=== PATIENT | female | born 1985 | race Caucasian/White ===

== ENCOUNTER 2020-07-13 17:26 | Emergency (ER) | payer OTHER ==
[~2020-07-13] VITALS: Ht 160 cm; Wt 70.9 kg
--- NOTE | 2020-07-13 18:05 | NUR ---
PERIUMBILICAL PAIN X5 DAYS. WAS SEEN AT TODAY AND SENT TO ED. +NAUSEA, REPORTS PAIN IS WORSE WHEN WALKING OR LIFTING. NO VOMITING, LBM TODAY
[2020-07-13] MEDS ORDERED: ONDANSETRON 2MG/ML, 2ML ONE (18:28)
[2020-07-13] MEDS ORDERED: ONDANSETRON 2MG/ML, 2ML IVPush ONE (18:30)
[2020-07-13] MEDS ORDERED: MORPHINE SULFATE 4 MG/ML, 1ML IVPush PRN (18:30)
[2020-07-13 18:34] LABS: BASOPHILS % (AUTO) 2 % (0-1); EOSINOPHILS # (AUTO) 0.15 x10^3/uL (0-0.4); EOSINOPHILS % (AUTO) 2 % (1-7); LYMPHOCYTES # (AUTO) 2.45 x10^3/uL (1-3.4); LYMPHOCYTES % (AUTO) 26 % (22-44); MD NO; MEAN CORPUSCULAR HEMOGLOBIN 31.7 pg (27.0-34.8); MEAN CORPUSCULAR HGB CONC 33.6 g/dL (32.4-35.8); MEAN CORPUSCULAR VOLUME 94.5 fL (80-100); MEAN PLATELET VOLUME 7.4 fL (7.4-10.4); MONOCYTES # (AUTO) 0.61 x10^3/uL (0.2-0.8); MONOCYTES % (AUTO) 7 % (2-9); NEUTROPHILS # (AUTO) 5.88 x10^3/uL (1.8-6.8); NEUTROPHILS % (AUTO) 63 % (42-75); PLATELET COUNT 333 x10^3/uL (130-400); RED CELL DISTRIBUTION WIDTH 12.8 % (9.6-15.2)
[2020-07-13 18:42] LABS: ALANINE AMINOTRANSFERASE 25 U/L (12-78); ALBUMIN 3.3 g/dL (3.4-5.0); ANION GAP 6 mmol/L (5-15); CALCIUM 8.6 mg/dL (8.5-10.1); CHLORIDE 107 mmol/L (98-107); CREATININE 0.74 mg/dL (0.55-1.02)
[2020-07-13 18:46] LABS: ALKALINE PHOSPHATASE 69 U/L (45-117); BILIRUBIN,TOTAL 0.3 mg/dL (0.2-1.0); TOTAL PROTEIN 6.9 g/dL (6.4-8.2)
[2020-07-13 18:48] LABS: MICROSCOPIC NOT IND
--- NOTE | 2020-07-13 18:59 | NUR ---
RECEIVED REPORT FROM TERE ATKINS. PATIENT GOING TO CT SCAN. SHE IS RESTING COMFORTABLEY. PAIN IS 3/10. NO COMPLAINTS AT THIS TIME.
--- NOTE | 2020-07-13 19:04 | NUR ---
REPORT TO ARIES/KEVIN RNS
[2020-07-13] MEDS ORDERED: OMNIPAQUE 350 MG/ML, 100ML BOTTLE ONE (19:12)
[2020-07-13 20:18] VITALS: BP 128/61
--- NOTE | 2020-07-13 20:45 | NUR ---
Patient given discharge instructions and they have confirmed that they understand the instructions. Patient ambulatory with steady gait.
== END 2020-07-13 20:54 | disposition home or self-care (01) ==
LOC: ED 19:42
DX: N83.292 Other ovarian cyst, left side (principal); R10.33 Periumbilical pain
CPT/HCPCS: 36415; 74177; 80053; 81003; 83690; 84703; 85025; 96374; 99285; J2405; Q9967

== ENCOUNTER 2021-05-04 17:53 | Inpatient (IN) | payer BC, OTHER ==
[~2021-05-04] VITALS: Ht 160 cm; Wt 85.5 kg
[2021-05-04 18:08] VITALS: BP 125/74
[2021-05-04] MEDS ORDERED: OXYTOCIN 30U/ 0.9% NaCL 500ML 500 ML ONE (19:10)
[2021-05-04] MEDS ORDERED: NEWBORN KIT ONE (19:10)
[2021-05-04] MEDS ORDERED: LIDOCAINE 1%, 20ML ONE (19:10)
[2021-05-04] MEDS ORDERED: MISOPROSTOL 200 MCG TABLET ONE (19:10)
[2021-05-04] MEDS: FENTANYL PF 100 MCG/2ML IVPush PRN ×2 (19:29→20:29)
[2021-05-04] MEDS ORDERED: LACTATED RINGERS 1,000 ML IV SCH ×2 (19:30→21:30)
[2021-05-04] MEDS ORDERED: OXYTOCIN 30U/ 0.9% NaCL 500ML 500 ML IV ONE (19:30)
[2021-05-04] MEDS ORDERED: TERBUTALINE 1 MG/ML, 1ML SQ PRN (19:30)
[2021-05-04] MEDS ORDERED: FENTANYL PF 100 MCG/2ML IV PRN (19:30)
[2021-05-04] MEDS ORDERED: TERBUTALINE 1 MG/ML, 1ML IVPush PRN (19:30)
[2021-05-04 19:34] LABS: BASOPHILS % (AUTO) 0 % (0-1); EOSINOPHILS % (AUTO) 0 % (1-7); LYMPHOCYTES % (AUTO) 18 % (22-44); MEAN CORPUSCULAR HEMOGLOBIN 32.3 pg (27.0-34.8); MEAN CORPUSCULAR HGB CONC 33.8 g/dL (32.4-35.8); MEAN PLATELET VOLUME 8.7 fL (7.4-10.4); MONOCYTES % (AUTO) 6 % (2-9); NEUTROPHILS % (AUTO) 76 % (42-75); PLATELET COUNT 238 x10^3/uL (130-400); RED BLOOD COUNT 4.16 x10^6/uL (3.82-5.3)
[2021-05-04] MEDS ORDERED: FENTANYL/BUPIV./NS/PF 0 ML EPIDCONT ONE (20:14)
[2021-05-04] MEDS ORDERED: BUPIVACAINE 0.25% ONE (20:58)
[2021-05-04] MEDS ORDERED: FENTANYL/BUPIV./NS/PF 250 ML EPIDCONT ONE (20:58)
[2021-05-04] MEDS ORDERED: FENTANYL/BUPIV./NS/PF 250 ML EPIDCONT SCH (21:30)
[2021-05-04] MEDS ORDERED: LACTATED RINGERS 1,000 ML IVBOLUS PRN (21:30)
[2021-05-04] MEDS ORDERED: EPHEDRINE 50 MG/ML, 1ML IVPush PRN (21:30)
[2021-05-04] MEDS ORDERED: ONDANSETRON 2MG/ML, 2ML ONE (23:13)
[2021-05-05] MEDS ORDERED: OXYTOCIN 30U/ 0.9% NaCL 500ML 500 ML IV PRN (02:00)
[2021-05-05] MEDS ORDERED: D5%-LACTATED RINGERS 1,000 ML IV SCH (03:00)
[2021-05-05] MEDS ORDERED: METOCLOPRAMIDE 5 MG/ML, 2ML ONE (07:03)
[2021-05-05] MEDS ORDERED: METOCLOPRAMIDE 5 MG/ML, 2ML IVPush PRN (07:30)
[2021-05-05] MEDS ORDERED: DIPH,PERTUSS(ACELL),TET VAC/PF NC IM-VACC PRN (13:30)
[2021-05-05] MEDS ORDERED: ONDANSETRON 2MG/ML, 2ML IV PRN (13:30)
[2021-05-05] MEDS ORDERED: MAGNESIUM HYDROXIDE 8%, 30ML UDC PO PRN (13:30)
[2021-05-05] MEDS ORDERED: ACETAMINOPHEN 325 MG TABLET PO PRN (13:30)
[2021-05-05] MEDS ORDERED: RHOGAM FROM BLOOD BANK 1 NOTE EA IM/IV ONE (13:30)
[2021-05-05] MEDS ORDERED: OXYcodone/APAP 5/325MG TABLET PO PRN ×2 (13:30)
[2021-05-05] MEDS ORDERED: SIMETHICONE 80 MG CHEW TAB PO PRN (13:30)
[2021-05-05] MEDS ORDERED: MISOPROSTOL 200 MCG TABLET PR PRN (13:30)
[2021-05-05] MEDS ORDERED: OXYTOCIN 30U/ 0.9% NaCL 500ML 500 ML IV SCH (13:30)
[2021-05-05] MEDS: IBUPROFEN 600 MG TABLET PO PRN ×2 (14:10→20:07)
[2021-05-05 16:00] VITALS: BP 124/75
[2021-05-05 18:39] VITALS: BP 121/80
[2021-05-05] MEDS: DOCUSATE 100 MG CAPSULE PO PRN (20:07)
[2021-05-05 21:17] LABS: MEAN CORPUSCULAR HEMOGLOBIN 32.2 pg (27.0-34.8); MEAN CORPUSCULAR HGB CONC 33.4 g/dL (32.4-35.8); MEAN PLATELET VOLUME 8.7 fL (7.4-10.4); PLATELET COUNT 211 x10^3/uL (130-400); RED BLOOD COUNT 3.77 x10^6/uL (3.82-5.3); RED CELL DISTRIBUTION WIDTH 13.2 % (9.6-15.2)
[2021-05-06 00:50] VITALS: BP 112/72
[2021-05-06] MEDS: IBUPROFEN 600 MG TABLET PO PRN ×3 (03:46→18:46)
[2021-05-06 03:50] VITALS: BP 121/83
[2021-05-06 08:21] VITALS: BP 110/74
[2021-05-06] MEDS: PRENATAL VIT/IRON/FA 1 EACH TABLET PO SCH (09:00)
[2021-05-06] MEDS: DOCUSATE 100 MG CAPSULE PO PRN ×2 (09:02→18:46)
[2021-05-06 22:40] VITALS: BP 107/66
[2021-05-07] MEDS: IBUPROFEN 600 MG TABLET PO PRN (07:45)
[2021-05-07 08:20] VITALS: BP 126/83
[2021-05-07] MEDS: PRENATAL VIT/IRON/FA 1 EACH TABLET PO SCH (09:00)
[2021-05-07] MEDS: DOCUSATE 100 MG CAPSULE PO PRN (09:01)
[2021-05-07] MEDS ORDERED: IBUP-1222 PO (13:06)
== END 2021-05-07 14:34 | disposition home or self-care (01) | DRG 807 ==
LOC: LDOP 17:53 → LDIP 19:01 → 2NW 05-05 15:55
PROVIDERS: ADMIT Obstetrics & Gynecology; ATTEND Obstetrics & Gynecology
PROC: 10E0XZZ Delivery of Products of Conception, External Approach (ICD-10-PCS; principal; 2021-05-05)
PROC: 0KQM0ZZ Repair Perineum Muscle, Open Approach (ICD-10-PCS; 2021-05-05)
PROC: 3E0R3BZ Introduction of Anesthetic Agent into Spinal Canal, Percutaneous Approach (ICD-10-PCS; 2021-05-05)
PROC: 00HU33Z Insertion of Infusion Device into Spinal Canal, Percutaneous Approach (ICD-10-PCS; 2021-05-05)
DX: O70.1 Second degree perineal laceration during delivery (principal); Z37.0 Single live birth; Z3A.39 39 weeks gestation of pregnancy; Z20.822 Contact with and (suspected) exposure to COVID-19
CPT/HCPCS: 36415; 84112; 85025; 86592; 86850; 86900; 87635; G0378; J3010; J2590; J2765; J7120